=== PATIENT | male | born 1960 | race Caucasian/White ===

== ENCOUNTER → 2019-02-10 16:36 | Outpatient (CLI) | payer OTHER, SELFPAY ==
[2019-02-10 17:39] LABS: Blood Urea Nitrogen 24 mg/dL (9-20); Carbon Dioxide 24 mmol/L (22-32); Chloride 104 mmol/L (98-107); Cholesterol 264 mg/dL (140-199); Estimated Glomerular Filt Rate > 60.0 mL/min (>60); Glucose 100 mg/dL (70-100); HDL Cholesterol 59 mg/dL (40-60); HEMOLYSIS < 15 (0-50); LDL Cholesterol Calculated 176 mg/dL (<100); Potassium 3.8 mmol/L (3.4-5.1); Sodium 138 mmol/L (137-145); Triglycerides 145 mg/dL (35-150)
[2019-02-10 18:10] LABS: Prostate Specific Antigen Scrn 1.12 ng/mL (0.1-4.0)
== END ==
PROVIDERS: PCP Student in an Organized Health Care Education/Training Program; Visit Provider Student in an Organized Health Care Education/Training Program
DX: Z13.220 Encounter for screening for lipoid disorders (principal); I10 Essential (primary) hypertension; Z12.5 Encounter for screening for malignant neoplasm of prostate
CPT/HCPCS: 36415; 80048; 80061; G0103

== ENCOUNTER → 2021-02-16 10:01 | Outpatient (CLI) | payer OTHER, SELFPAY ==
--- NOTE | 2021-02-16 10:04 | DI.RAD.S_ITS ---
PROCEDURE: XR CHEST 2V INDICATIONS: chronic cough, family history of lung cancer TECHNIQUE: 2 views of the chest were acquired. COMPARISON: None. FINDINGS: Surgical changes and devices: None. Lungs and pleura: Lungs are clear except for a radiodensity that produces a contour transition along the left ventricular apex. On the lateral view possibly within this same area is a anterior region of 3 x 4 cm increased radiodensity. No pleural effusions or pneumothorax. Mediastinum: Mediastinal contours are normal. Heart size is normal. Bones and chest wall: No suspicious bony abnormalities. Soft tissues appear unremarkable. IMPRESSION: Recommend chest CT scanning given the contour irregularity along the left ventricular apex and a possible unexplained soft tissue radiodensity anteriorly superimposed on the heart region. The likelihood of this being a lung carcinoma is considered low but given the clinical history provided CT scanning is recommended. Contrast-enhanced scanning would provide the highest anatomic detail. Dictated by: Konstantin Miller M.D. on 02/16/2021 at 9:24 Approved by: Konstantin Miller M.D. on 02/16/2021 at 9:27
== END ==
PROVIDERS: PCP Student in an Organized Health Care Education/Training Program; Referring Provider Student in an Organized Health Care Education/Training Program; Visit Provider Student in an Organized Health Care Education/Training Program
DX: R05 Cough (principal); Z80.1 Family history of malignant neoplasm of trachea, bronchus and lung
CPT/HCPCS: 71046

== ENCOUNTER → 2021-02-18 15:31 | Outpatient (CLI) | payer OTHER, SELFPAY ==
[2021-02-18 16:29] LABS: Blood Urea Nitrogen 24 mg/dL (9-20); Estimated Glomerular Filt Rate > 60.0 mL/min (>60)
[2021-02-18 16:59] LABS: Prostate Specific Antigen 1.07 ng/mL (0.10-4.00)
== END ==
PROVIDERS: PCP Student in an Organized Health Care Education/Training Program; Referring Provider Student in an Organized Health Care Education/Training Program; Visit Provider Student in an Organized Health Care Education/Training Program
DX: N14.1 Nephropathy induced by other drugs, medicaments and biological substances (principal); T50.8X5A Adverse effect of diagnostic agents, initial encounter; Z12.5 Encounter for screening for malignant neoplasm of prostate
CPT/HCPCS: 36415; 82565; 84153; 84520

== ENCOUNTER → 2021-02-25 15:42 | Outpatient (CLI) | payer OTHER, SELFPAY ==
[2021-02-25 17:23] LABS: COVID19 -Nasal RAPID Negative (Negative)
== END ==
PROVIDERS: PCP Student in an Organized Health Care Education/Training Program; Visit Provider Surgery
DX: Z20.822 Contact with and (suspected) exposure to COVID-19 (principal)
CPT/HCPCS: 87635; C9803

== ENCOUNTER 2021-02-26 06:40 | Day surgery (SDC) | payer OTHER, SELFPAY ==
[2021-02-26] VITALS (7 sets, daily range): BP systolic 107–159; BP diastolic 65–102; PULSE 65–73; RESP 14–16; TEMP 36.2–36.9; O2SAT 95–98; BMI 32.8
[2021-02-26] MEDS: LACTATED RINGERS 1,000 ML 42 ML IV (07:32)
--- NOTE | 2021-02-26 07:34 | PM.PREOP ---
Pre-operative Note COVID-19 COVID-19 status: Negative Result date/Date tested (Pos, Neg/Pending): 02/25/21 Interval Note History & Physical reviewed/Exam performed by Physician: Yes Changes to H&P: No ASA Class (for procedural sedation): I
--- NOTE | 2021-02-26 07:34 | PM.HP.1 ---
History of Present Illness History of Present Illness Date Patient Seen: 02/26/21 Time Patient Seen: 07:34 Date of Onset of Symptoms: 02/26/21 Chief complaint: SDC Narrative: Here for screening colonoscopy. This is his first scope, no symptoms and no family history for colon cancer or disease. Patient History Surgical History Status post knee surgery Status post rotator cuff repair Family & Social History Family History Mother Cancer Social History: household members spouse Tobacco & Substance use: Smoking Status Never smoker alcohol intake current alcohol intake frequency a few times a month Substance Use Type does not use Meds Home Medications and Allergies Home Medications Medication Instructions Recorded Confirmed Type aspirin 81 mg tablet,delayed 81 mg PO DAILY 02/11/19 02/26/21 History release amlodipine 5 mg tablet 5 mg PO DAILY #90 tab 02/18/21 02/26/21 Rx losartan 100 1 tab PO DAILY #90 tab 02/18/21 02/26/21 Rx mg-hydrochlorothiazide 25 mg tablet lovastatin 20 mg tablet 20 mg PO QPM #90 tab 02/18/21 02/26/21 Rx Allergies Allergy/AdvReac Type Severity Reaction Status Date / Time No Known Drug Allergies Allergy Verified 02/26/21 07:21 Exam Vital Signs (past 8 hours): - 02/26/21 07:06 Temperature 97.1 F L Pulse Rate 73 Respiratory Rate 16 Blood Pressure 159/102 H Pulse Oximetry 96 Oxygen Delivery Method Room Air Const General: cooperative and healthy appearing HENKS Head: normal to inspection Mouth: oral mucosae normal Eyes General: appearance normal, both eyes and all related structures Sclera: sclerae normal Neck Neck: trachea midline Chest Chest: normal inspection of the chest Resp Effort & Inspection: normal respiratory effort and able to speak in complete sentences Auscultation: clear to auscultation bilaterally Cardio Rate: regular rate Rhythm: regular rhythm GI Inspection: normal to inspection Palpation: soft Neuro General: patient alert, patient awake and patient oriented x3 Extrem General: normal to inspection and full ROM Psych Appearance: grossly normal Thought Content: normal Judgment: judgment good Assessment & Plan Assessment & Plan narrative: First colon cancer screening using colonoscopy and moderate sedation COVID-19 COVID-19 status: Negative Time Spent With Patient Time with patient: 15-24 minutes
[2021-02-26] MEDS: fentaNYL 250 MCG/5 ML INJ IV (07:45)
[2021-02-26] MEDS: MIDAZOLAM 5 MG/5 ML VIAL IV (07:47)
--- NOTE | 2021-02-26 07:56 | PM.OP.ENDO ---
Operative Date/Time/Diagnoses Date of procedure: 02/26/21 Time of procedure: 07:57 Pre-op diagnosis: colon cancer screening Post-op diagnosis: same Procedure & Clinicians Study performed: colonoscopy Same procedure as scheduled: Yes Indications: screening Surgeon: Mindy Torre Procedure Notes SCOAP/Timeout: done Procedure in detail: Prep diagnosis: Colon cancer screening Postop diagnosis: Same Operative procedure: Colonoscopy with moderate sedation Surgeon: Darlene Torre MD Anesthetic: Fentanyl and Versed, see nurse's note for dosing. Findings: Normal colonoscopy. No polyps, no diverticuli Procedure: Patient was placed in a lateral position. Rectal exam is performed showing normal tone no masses. He does have moderate to large-sized hemorrhoidal tags. Scope was inserted into the rectum and advanced to the ileocecal valve with minimal difficulty. Insufflation and extraction of the scope including retroflex in the rectum had the above findings. Impression: No polyps, no diverticuli. Plan: Repeat colonoscopy in 10 years unless indicated by change in clinical condition or family history Scope withdrawal time: 4 Sedation minutes: 10 Specimen(s): none sent Complications: none Impression: No polyps, no diverticula. Repeat screening colonoscopy in 10 years Post-procedure Recommendations: Colonscopy in 10 years and Continue medication(s) Plan for aftercare: home Follow up: as needed Disposition: PACU
== END 2021-02-26 08:42 | disposition home or self-care (01) ==
PROVIDERS: PCP Student in an Organized Health Care Education/Training Program; Referring Provider Surgery; Visit Provider Surgery
PROC: 0DJD8ZZ Inspection of Lower Intestinal Tract, Via Natural or Artificial Opening Endoscopic (ICD-10-PCS; CPT 45378; principal; 2021-02-26 07:45)
DX: Z12.11 Encounter for screening for malignant neoplasm of colon (principal); K64.4 Residual hemorrhoidal skin tags
CPT/HCPCS: 45378; 99152; J2250; J3010

== ENCOUNTER → 2021-03-04 08:03 | Outpatient (CLI) | payer OTHER, SELFPAY ==
--- NOTE | 2021-03-04 09:10 | DI.CT.S_ITS ---
PROCEDURE: CT CHEST W CON INDICATIONS: Re-Evaluate abnormal XR findings from 02/16/21 TECHNIQUE: After the administration of intravenous contrast, 5 mm thick sections acquired from the pulmonary apices to the posterior costophrenic angles. 1 mm axial lung, 5 mm thick coronal and sagittal reformats and 7 mm axial MIP were acquired. For radiation dose reduction, the following was used: automated exposure control, adjustment of mA and/or kV according to patient size. COMPARISON: [facility], , XR CHEST 2V, 02/16/2021, 10:06. FINDINGS: Image quality: Excellent. Lungs and pleura: 2 mm noncalcified pulmonary nodule, inferior posterior right upper lobe, image 152/3. 3 mm pulmonary nodule, left lower lobe, image 148/3. No acute air space opacities. No pleural effusions or pneumothorax. Central and peripheral airways are patent and normal in caliber. Mediastinum: Heart size is normal. No pericardial effusion. Prominent left epicardial fat pad. No mediastinal or hilar adenopathy by size criteria. Thoracic aorta and central pulmonary arteries are normal in size. Esophagus is normal in caliber. No hiatal hernia. Bones and chest wall: No suspicious bony lesions. No vertebral body compression fractures. No axillary or supraclavicular adenopathy by size criteria. Thyroid gland is not visualized. Abdomen: Mild diffuse hepatic steatosis. Visualized upper abdominal solid organs otherwise appear normal. Upper abdominal bowel loops are normal in caliber. IMPRESSION: 1. Contour irregularity of along the left ventricular apex represents a prominent left epicardial fat pad. 2. Small bilateral pulmonary nodules, the largest of which measures 3 mm. Please refer to the chart below for follow-up recommendations. 3. Mild diffuse hepatic steatosis. Fleischner Society criteria for SOLID lung nodule followup. Nodule size (mm)Low-risk patientHigh-risk patient<6 (single or multiple)No routine followup.Optional CT at 12 months. 6-8 (single or multiple)CT at 6-12 months, then optional CT at 18-24 mo.CT at 6-12 months, then CT at 18-24 months. >8 (single)CT at 3 months, PET-CT, or biopsy. Same as for low-risk pts. >8 (multiple)CT at 3-6 months, then optional CT at 18-24 mo.CT at 3-6 months, then CT at 18-24 months. Fleischner Society criteria for SUB-SOLID lung nodule followup. Solitary pure ground-glass nodules<6 mm (ground glass or part solid)No followup needed. 6 mm or larger (ground glass)CT at 6-12 months to confirm persistence, then CT every 2 years until 5 years.6 mm or larger (part solid)CT at 3-6 months to confirm persistence, then annual CT until 5 years if unchanged and solid component remains <6 mm. Multiple sub-solid nodules<6 mmCT at 3-6 months, then CT consider at 2 & 4 years for high risk patients. [address] at 3-6 months. Subsequent management based on most suspicious lesions. Recommendations do not apply to lung cancer screening, patients with immunosuppression, or patients with known primary cancer. Dictated by: David Han M.D. on 03/04/2021 at 11:56 Approved by: David Han M.D. on 03/04/2021 at 12:17
== END ==
PROVIDERS: PCP Student in an Organized Health Care Education/Training Program; Referring Provider Student in an Organized Health Care Education/Training Program; Visit Provider Student in an Organized Health Care Education/Training Program
DX: R05 Cough (principal); R93.89 Abnormal findings on diagnostic imaging of other specified body structures; R91.8 Other nonspecific abnormal finding of lung field; K76.0 Fatty (change of) liver, not elsewhere classified
CPT/HCPCS: 71260

== ENCOUNTER → 2022-01-29 08:24 | Outpatient (CLI) | payer OTHER, SELFPAY ==
[2022-01-29 09:12] LABS: Hematocrit 45.6 % (41-53); Hemoglobin 16.2 g/dL (13.5-17.5); Mean Corpuscular HGB Conc 35.5 % (30-36); Mean Corpuscular Hemoglobin 31.7 PG (26-34); Mean Corpuscular Volume 89.3 fL (80-100); Platelet Count 217 X10^3/uL (150-400); Red Blood Cell Count 5.11 X10^6/uL (4.5-5.9); White Blood Cell Count 6.2 X10^3/uL (4.5-11.0)
[2022-01-29 09:52] LABS: Alanine Aminotransferase 55 IU/L (<50); Albumin 4.7 g/dL (3.5-5.0); Albumin Globulin Ratio 1.5 (1.0-2.8); Alkaline Phosphatase 68 U/L (38-126); Aspartate Aminotransferase 46 IU/L (17-59); BUN Creatinine Ratio 26.4 (6-22); Bilirubin Total 0.7 mg/dL (0.2-1.3); Blood Urea Nitrogen 29 mg/dL (9-20); Calcium 9.5 mg/dL (8.4-10.2); Carbon Dioxide 26 mmol/L (22-32); Chloride 102 mmol/L (98-107); Cholesterol 220 mg/dL (140-199); Estimated Glomerular Filt Rate > 60 mL/min (>60); Globulin 3.1 g/dL (1.7-4.1); Glucose 114 mg/dL (80-110); HDL Cholesterol 64 mg/dL (40-60); HEMOLYSIS < 15 (0-50); LDL Cholesterol Calculated 141 mg/dL (<100); Potassium 4.4 mmol/L (3.4-5.1); Sodium 136 mmol/L (137-145); Total Protein 7.8 g/dL (6.3-8.2); Triglycerides 76 mg/dL (35-150)
[2022-01-29 10:04] LABS: Prostate Specific Antigen Scrn 1.44 ng/mL (0.1-4.0)
== END ==
PROVIDERS: PCP Student in an Organized Health Care Education/Training Program; Referring Provider Student in an Organized Health Care Education/Training Program; Visit Provider Student in an Organized Health Care Education/Training Program
DX: E78.00 Pure hypercholesterolemia, unspecified (principal); I10 Essential (primary) hypertension; Z79.899 Other long term (current) drug therapy; Z12.5 Encounter for screening for malignant neoplasm of prostate
CPT/HCPCS: 36415; 80053; 80061; 85027; G0103

== ENCOUNTER → 2023-12-07 07:12 | Outpatient (CLI) | payer OTHER, SELFPAY ==
[2023-12-07 08:15] LABS: Add Manual Diff / Slide Review NO; Basophils Absolute Auto 0 /uL (0-100); Basophils Percent Auto 0.9 % (0-2); Eosinophils Absolute Auto 100 /uL (0-450); Eosinophils Percent Auto 1.8 % (2-4); Hematocrit 43.3 % (41-53); Hemoglobin 15.2 g/dL (13.5-17.5); Lymphocytes Absolute Auto 1500 /uL (1100-4500); Lymphocytes Percent Auto 28.6 % (25-40); Mean Corpuscular HGB Conc 35.2 % (30-36); Mean Corpuscular Hemoglobin 32.1 PG (26-34); Mean Corpuscular Volume 91.3 fL (80-100); Monocytes Absolute Auto 500 /uL (0-900); Monocytes Percent Auto 8.9 % (3-14); Neutrophils Absolute Auto 3100 /uL (1500-7000); Neutrophils Percent Auto 59.8 % (50-75); Platelet Count 180 X10^3/uL (150-400); Red Blood Cell Count 4.74 X10^6/uL (4.5-5.9); Red Cell Distribution Width 12.7 % (11.6-14.8); White Blood Cell Count 5.1 X10^3/uL (4.5-11.0)
[2023-12-07 08:28] LABS: Hemoglobin A1C% w Est Avg Glu 5.2 % (4.0-6.0)
[2023-12-07 08:31] LABS: Alanine Aminotransferase 101 IU/L (<50); Albumin 4.2 g/dL (3.5-5.0); Albumin Globulin Ratio 1.5 (1.0-2.8); Alkaline Phosphatase 64 U/L (38-126); Aspartate Aminotransferase 66 IU/L (17-59); BUN Creatinine Ratio 23.9 (6-22); Bilirubin Total 0.7 mg/dL (0.2-1.3); Blood Urea Nitrogen 21 mg/dL (9-20); Calcium 9.4 mg/dL (8.4-10.2); Carbon Dioxide 27 mmol/L (22-32); Chloride 103 mmol/L (98-107); Cholesterol 172 mg/dL (140-199); Estimated Glomerular Filt Rate > 60 mL/min (>60); Globulin 2.8 g/dL (1.7-4.1); Glucose 109 mg/dL (80-110); HDL Cholesterol 62 mg/dL (40-60); HEMOLYSIS < 15 (0-50); LDL Cholesterol Calculated 96 mg/dL (<100); Potassium 3.9 mmol/L (3.4-5.1); Sodium 136 mmol/L (137-145); Triglycerides 69 mg/dL (35-150)
[2023-12-07 11:08] LABS: Microalbumin Urine Random 2.3 mg/dL (0-1.6)
[2023-12-07 11:10] LABS: Creatinine Urine Random 199.6 mg/dL; Microalbumi Creatinin Ratio Ur 11.5 ug/mg CR (<30)
== END ==
PROVIDERS: PCP Family Medicine; Referring Provider Family Medicine; Visit Provider Family Medicine
DX: I10 Essential (primary) hypertension (principal); E78.00 Pure hypercholesterolemia, unspecified; E66.9 Obesity, unspecified
CPT/HCPCS: 36415; 80053; 80061; 82043; 82570; 83036; 85025

== ENCOUNTER → 2025-01-26 08:52 | Outpatient (CLI) | payer MEDICARE, BC, SELFPAY ==
[2025-01-26 09:52] LABS: Add Manual Diff / Slide Review NO; Basophils Absolute Auto 0 /uL (0-100); Basophils Percent Auto 0.8 % (0-2); Eosinophils Absolute Auto 100 /uL (0-450); Eosinophils Percent Auto 1.4 % (2-4); Hematocrit 45.1 % (41-53); Hemoglobin 15.9 g/dL (13.5-17.5); Lymphocytes Absolute Auto 1100 /uL (1100-4500); Lymphocytes Percent Auto 22.4 % (25-40); Mean Corpuscular HGB Conc 35.2 % (30-36); Mean Corpuscular Hemoglobin 31.9 PG (26-34); Mean Corpuscular Volume 90.7 fL (80-100); Monocytes Absolute Auto 400 /uL (0-900); Monocytes Percent Auto 8.4 % (3-14); Neutrophils Absolute Auto 3400 /uL (1500-7000); Platelet Count 183 X10^3/uL (150-400); Red Blood Cell Count 4.97 X10^6/uL (4.5-5.9)
[2025-01-26 10:09] LABS: Alanine Aminotransferase 58 IU/L (<50); Albumin 4.6 g/dL (3.5-5.0); Albumin Globulin Ratio 1.8 (1.0-2.8); Alkaline Phosphatase 71 U/L (38-126); Aspartate Aminotransferase 50 IU/L (17-59); BUN Creatinine Ratio 22.8 (6-22); Blood Urea Nitrogen 18 mg/dL (9-20); Calcium 9.4 mg/dL (8.4-10.2); Carbon Dioxide 23 mmol/L (22-32); Chloride 105 mmol/L (98-107); Cholesterol 244 mg/dL (140-199); Estimated Glomerular Filt Rate > 60 mL/min (>60); Globulin 2.5 g/dL (1.7-4.1); Glucose 118 mg/dL (70-99); HDL Cholesterol 69 mg/dL (40-60); HEMOLYSIS < 15 (0-50); LDL Cholesterol Calculated 160 mg/dL (<100); Potassium 4.2 mmol/L (3.4-5.1); Sodium 136 mmol/L (137-145); Total Protein 7.1 g/dL (6.3-8.2); Triglycerides 74 mg/dL (35-150)
[2025-01-26 10:37] LABS: Prostate Specific Antigen 1.74 ng/mL (0.10-4.00)
== END ==
LOC: LAB 08:56
PROVIDERS: PCP Family Medicine; Referring Provider Family Medicine; Visit Provider Family Medicine
DX: I10 Essential (primary) hypertension (principal); N40.0 Benign prostatic hyperplasia without lower urinary tract symptoms; E78.00 Pure hypercholesterolemia, unspecified; Z79.899 Other long term (current) drug therapy
CPT/HCPCS: 36415; 80053; 80061; 84153; 85025